=== PATIENT | male | born 1960 | race Caucasian/White ===

== ENCOUNTER → 2018-04-27 | Day surgery (SDC) | payer OTHER ==
[~2018-04-27] VITALS: Ht 182.9 cm; Wt 147.4 kg
[~2018-04-27] MED LIST: ALLOPURINOL100 M1 PO; ALLOPURINOL300 M1 PO; COLACE100 M1 PO; DILAUDID2 M1 PO; ELIQUIS2.5 M1 PO; LISINOPRIL10 M1 PO; METOPROLOL SUCC50 M2 PO; MIRALAX17 G1 PO; MS CONTIN30 M1 PO; PERCOCET 5-3251 EACH PO; XARELTO20 M2 PO
--- NOTE | 2018-04-27 15:02 | Operative Report ---
Operative/Inv Procedure Report Surgery Date: 04/27/18 Name of Procedure: Laparoscopic converted to open bilateral inguinal hernia repair with mesh Pre-Operative Diagnosis: Bilateral inguinal hernias Post-Operative Diagnosis: Same, recurrent on the right Estimated Blood Loss: scant Surgeon/[employer] Operator: Victor M HERNANDEZ,Devin AMES student Anesthesia: general endotracheal tube Specimens: None Complications: None Operative/Procedure Note Note: The patient was placed on the operating table in the supine position. After suitable general anesthesia was obtained both groins were prepped and draped in the usual sterile manner. A transverse infra umbilical incision was made and carried down through the skin and subcutaneous tissue. The anterior rectus fascia on the patient's left side was transversely incised. The rectus muscle was dissected superiorly. The dissecting balloon mechanism was placed underneath the rectus muscle down to the pubic tubercle. This was noted to be in good position under laparoscopic visualization and the balloon was inflated to 40 puffs of air. The balloon was then deflated and removed. The structural balloon was inflated and locked in place. A pneumo preperitoneum was established. The lower abdominal 5 mm ports were placed under direct laparoscopic visualization. The patient was placed in Trendelenburg position. Blunt dissection was begun in the preperitoneal space. The left inguinal scrotal hernia was too large to be reduced laparoscopically. Attention was turned to the right side and from his previous surgery the cord could not be mobilized likely secondary to adhesions to his old mesh. At this point I made a decision to change to open procedure. The ports were removed and the pneumoperitoneum was desufflated. The anterior rectus fascia was closed with a running heavy Vicryl suture. Subcutaneous 3-0 Vicryl sutures were used. All skin incisions were closed with 5-0 Vicryl subcuticular closure. Attention was turned to the left groin. A transverse incision was made and carried out through the skin and subcutaneous tissue. Bleeding points were controlled with electrocautery device. Dissection was taken down to the external oblique fascia. Large inguinal scrotal hernia with identified and reduced from the scrotum back up to the subcutaneous tissue. The inguinal canal was entered and the sac was dissected back to the internal ring. The sac was totally reduced back into the internal ring preserving cord structures. 2 large mesh plugs were sutured together after being soaked in bacitracin antibiotic solution. These were placed into the internal ring and tacked to the surrounding fascia with 0 Vicryl sutures to keep in place. A mesh onlay graft was then soaked in bacitracin antibiotic solution and laid into the inguinal canal to and around the spermatic cord. This was tacked to [place] tissue at the pubic tubercle, Poupart's ligament and transversalis fascia with 0 Vicryl sutures. The tails of the mesh were sutured to each other and to Poupart's ligament laterally. The cord structures were returned back into the inguinal canal. The external oblique fascia was closed with a running 0 Vicryl suture from lateral to medial reforming the external ring. Hemostasis in the area was noted to be good. The subcutaneous tissue was closed with 3-0 Vicryl suture interrupted. The skin was closed with 5-0 Vicryl subcuticular closure. Attention was turned to the right groin and again a transverse incision was made and carried out through skin subtenons tissue. Dissection was taken down through the subcutaneous tissue. There is a lot of scar tissue from his previous surgery. The cord structures were isolated to the pubic tubercle. No indirect sac was noted going down to the cord. There was some weakness at the previous mesh repair with a small direct recurrence. The area was so small I repaired with interrupted 0 Vicryl sutures and not is not any new mesh on the right side. Hemostasis in the area was noted to be good. The subcutaneous tissue was closed with interrupted 3-0 Vicryl sutures. The skin was closed with subcu taking a 5-0 Vicryl sutures. All incisions were anesthetized locally with 0.5% Marcaine. Steri-Strips and sterile dressings were applied all incisions. The patient tolerated the procedure well and was taken to the recovery room with stable vital signs.
== END ==
LOC: STS 02:29
DX: K40.91 Unilateral inguinal hernia, without obstruction or gangrene, recurrent (principal); K40.90 Unilateral inguinal hernia, without obstruction or gangrene, not specified as recurrent; I48.91 Unspecified atrial fibrillation; Z79.01 Long term (current) use of anticoagulants; I10 Essential (primary) hypertension; M10.9 Gout, unspecified
CPT/HCPCS: 36415; J0131; J0690; J2250; J3490